=== PATIENT | female | born 1980 | race African-American/Black ===

== ENCOUNTER → 2020-06-20 | Outpatient (CLI) | payer OTHER ==
[2016-09-04 04:04] VITALS: BP 145/105
[~2020-06-20] MED LIST: CARV12.511 PO; DICY10CA53 PO; DIGO125T3 PO; FURO20TA3 PO; HYDR-2761 PO; HYDR-2765 PO; HYDR-3164 PO; LACO200T PO; LISI10TA2 PO; NITR100C62 PO; OLAN2.5T3 PO; PROM12.58 PO; PROM25TA10 PO; SPIR25TA5 PO; VENL37.5 PO
--- NOTE | 2020-06-20 15:40 | RAD ---
AP and Lateral Views of the Chest 06/20/2020 12:00 AM Indication: Reason: CHF, SHORT OF BREATH / Spl. Instructions: / History: Comparison: Chest radiograph July 11, 2015 Findings: Dual-lead pacemaking/ICD device from left subclavian approach noted. There is no focal consolidation or infiltrate identified. Heart size is normal. There is no evidence of pneumothorax or pleural effusion. No acute osseous abnormalities are identified. Impression: No evidence of acute cardiopulmonary process. Electronically signed by: Jamey Fuentes MD (06/20/2020 3:37 PM) [id number]
== END | disposition home or self-care (01) ==
LOC: RAD 14:55
PROVIDERS: ATTEND Surgery
DX: I50.9 Heart failure, unspecified (principal); Z95.0 Presence of cardiac pacemaker; R06.02 Shortness of breath
CPT/HCPCS: 71046

== ENCOUNTER 2021-04-22 19:41 | Emergency (ER) | payer MEDICARE, OTHER ==
[~2021-04-22] VITALS: Ht 175.3 cm; Wt 108.7 kg
[~2021-04-22 19:41] MED LIST changes: +LISI10TA16 PO; -LISI10TA2 PO
[2021-04-22 19:45] VITALS: BP 125/62
--- NOTE | 2021-04-22 20:36 | RAD ---
EXAM: CHEST 1 VIEW History: Cough COMPARISON: 06/20/2020 TECHNIQUE: Single portable radiograph of the chest FINDINGS: Mild cardiomegaly. . Cardiac pacer AICD is identified. The costophrenic sulci are clear an d well demarcated. The lungs are clear. IMPRESSION: Mild cardiomegaly. Electronically signed by: Balta Carolina MD (04/22/2021 8:34 PM) [id number]
--- NOTE | 2021-04-22 20:47 | ED.ADGEN ---
Past Medical History Past Medical History: Anxiety, Bipolar, CHF, Depression, Heart Disease, H ypertension, [place], Seizure Additional Past Medical Histor: Graves Dx, internal defibrillator, (PT IS ON HEART TRANSPLANT LIST),PA,TBI Past Surgical History: Angioplasty, , Pacemaker, Tubal ligation, Other Additional Past Surgical Histo: hernia repair, PM/defib Smoking Status: Former Smoker Alcohol Use: None Drug Use: None General Adult EDM: Chief Complaint: MULTIPLE COMPLAINTS HPI: HPI: Patient is a 41 year old female, accompanied by her daughter, who presents emergency room with complaints of a sore throat, productive cough, and nasal congestion for the last week. Patient denies any loss of taste or smell. She reports that it hurts to swallow or drink anything but denies any difficulty swallowing. Patient states that she has tried taking Tylenol for relief of her pain but denies any decrease in her pain. She denies any fever, chest pain, palpitations, dizziness, headache, ear pain, nausea, vomiting, diarrhea, abdo rosales pain, or dysuria. The patient denies any known exposure to anyone with COVID-19. Patient states she has not been immunized against the virus. Patient currently rates her pain a 9 out of 10 on the pain scale, she denies any alleviating factors. Review of Systems: Review of Systems: Complete ROS is negative unless otherwise noted in HPI. Current Medications: Current Medications Medications (Trade) Dose Ordered Sig/Deedee Start Time Stop Time Status Last Admin Dose Admin Dexamethasone (Decadron) 10 mg 1X ONCE 04/22/21 21:00 04/22/21 21:01 DC 04/22/21 20:58 10 MG Allergies: Allergies: Allergies Coded Allergies Type Severity Reaction Last Updated Verified No Known Drug Allergies 07/11/15 No Physical Exam: PE: See Above Constitutional: Well developed, well nourished, no acute distress, non-toxic appearance, obese. [] HENT: Normocephalic, atraumatic, bilateral external ears normal, nose normal; mild erythema of posterior pharynx, cobblestone appearance of posterior pharynx, 2+ tonsils bilaterally with tonsillitis present. [] Eyes: PERRLA, EOMI, conjunctiva normal, no discharge. [] Neck: Normal range of motion, no stridor. [] Cardiovascular:Heart rate regular rhythm Lungs & Thorax: Respirations even and unlabored, no retractions, no respiratory distress,, lungs CTA, no wheezing Skin: Warm, dry, no erythema, no rash. [] Extremities: No cyanosis, ROM intact, no edema. [] Neurologic: Alert and oriented X 3, normal motor, normal sensory, no focal deficits noted. [] Psychologic: Affect normal, judgement normal, mood normal. [] Current Patient Data: Vital Signs: Vital Signs Date Time Temp Pulse Resp B/P (MAP) Pulse Ox O2 Delivery O2 Flow Rate FiO2 04/22/21 19:45 98.6 109 16 125/62 (83) 96 Room Air 98.6 EKG: EKG: [] Heart Score: C/O Chest Pain: No Radiology/Procedures: Radiology/Procedures: PROCEDURE: CHEST AP ONLY EXAM: CHEST 1 VIEW History: Cough COMPARISON: 06/20/2020 TECHNIQUE: Single portable radiograph of the chest FINDINGS: Mild cardiomegaly. . Cardiac pacer AICD is identified. The costophrenic sulci are clear and well demarcated. The lungs are clear. IMPRESSION: Mild cardiomegaly. Electronically signed by: Balta Carolina MD (04/22/2021 8:34 PM) [id number] [] Course & Med Decision Making: Course & Med Decision Making Pertinent Labs and Imaging studies reviewed. (See chart for details) COVID-19 CRITERIA: The patient was evaluated during the global COVID-19 pandemic, and that diagnosis was suspected/considered upon their initial presentation. Their evaluation, treatment and testing was consistent with current guidelines for patients who present with complaints or symptoms that may be related to COVID-19. [] Dragon Disclaimer: Dragon Disclaimer: This electronic medical record was generated, in whole or in part, using a voice recognition dictation system. Departure Departure Impression: Primary Impression: Person under investigation for COVID-19 Additional Impression: URI (upper respiratory infection) Disposition: 01 HOME / SELF CARE / HOMELESS Condition: STABLE Referrals: TORI MARTINEZ (PCP) Patient Instructions: Upper Respiratory Infection, Adult, [id number] Additional Instructions: You have been tested for or diagnosed with COVID-19. It is an infection caused by a new type of coronavirus. COVID-19 will cause cold-like or mild flu symptoms in most. It can cause more severe symptoms like problems breathing in some. There is no treatment for COVID-19. The body will clear the infection over time. Self-care will help to ease discomfort. Steps to Take: Self-Care Rest as needed. Healthy habits may help you feel better. Steps include: Choose healthy foods including fruits and vegetables. Drink water throughout the day. Get plenty of sleep each night. If you smoke, try to quit. It may ease breathing. Avoid alcohol. Keep Others Healthy The virus can spread to others. Droplets are released every time you sneeze or cough. The droplets can get into the mouth, nose, or eyes of people near you and lead to infection. To lower the chances of spreading COVID-19 to others: Stay at home until your doctor has said it is safe to leave. If you tested positive this will mean staying isolated until both of the following are true: At least 7 days have passed since the start of illness. You are free of fever for at least 72 hours without the use of medicine. During this time: - Avoid public areas, events, or transportation. Do not return to work or school until your doctor has said it is safe to do so. - Call ahead if you need to go to a medical center. Let them know you may have COVID-19. It will help them guide you where to go. They may also ask you to wear a facemask when you come to the office. - If you call for emergency medical services, let them know you may have COVID- 19. While at home: - Try to avoid close contact with others. Stay about 6 feet away. - If possible, spend most of your time in a separate room from others. - Use a face mask if you will be in close contact with others such as sharing a room or vehicle. - Have someone wipe down common surfaces in the home. Use household dental laboratory worker every day on areas like doorknobs, counters, or sinks. - Cough or sneeze into a tissue. Throw the tissue away right after use. If a tissue is not available, cough or sneeze into your elbow. - Wash your hands often. Wash them after sneezing or coughing. Use soap and water and wash for at least 20 seconds. Alcohol based hand exhibit cleaner can be used if soap and water is not available. - Do not prepare food for others. Avoid sharing personal items like forks, spoons, or toothbrushes. - Avoid close contact with pets while you are sick. There is no evidence of the virus passing to pets. This is a safety step until more is known about this virus. Isolation can be frustrating. Social interaction can help. Keep in touch with friends and family through phone and tech options. You can still interact with others in your home, just keep a safe distance of about 6 feet. Follow-up: Your doctors office will check in with you to see if there are any changes in your health. You may be asked to keep track of symptoms to share with them. They will also let you know when you are clear to be in public again. Problems to Look Out For: Contact your doctor if your recovery is not going as you expect. Get emergency care if you have problems such as: - Trouble breathing - Nonstop chest pain or pressure - Changes in awareness, confusion, or problems waking - Lips or face have bluish color - Worsening of symptoms If you think you have an emergency, call for emergency medical services right away. 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
[2021-04-22] MEDS ORDERED: DEXAMETHASONE 4 MG TABLET PO ONE (21:00)
[2021-04-22] MEDS ORDERED: [UNRECOGNIZED DRUG - CODE] PO (21:24)
[2021-04-22] MEDS ORDERED: BENZ100C PO (21:24)
--- NOTE | 2021-04-23 14:45 | NUR ---
IP: Informed pt of negative covid test. Pt verbalized understanding.
== END 2021-04-22 21:35 | disposition home or self-care (01) ==
LOC: ER 19:41
DX: J06.9 Acute upper respiratory infection, unspecified (principal); Z20.822 Contact with and (suspected) exposure to COVID-19; F31.9 Bipolar disorder, unspecified; I11.0 Hypertensive heart disease with heart failure; I50.9 Heart failure, unspecified; I25.2 Old myocardial infarction; Z95.5 Presence of coronary angioplasty implant and graft; Z87.891 Personal history of nicotine dependence; Z95.810 Presence of automatic (implantable) cardiac defibrillator
CPT/HCPCS: 71045; 87070; 87880; 99283; U0003; U0005